=== PATIENT | female | born 1975 | race Caucasian/White ===

== ENCOUNTER 2016-12-08 13:41 | Day surgery (SDC) | payer OTHER ==
[~2016-12-08] VITALS: Ht 172.7 cm; Wt 96.1 kg
[~2016-12-08 13:41] MED LIST: OMEP40CA6 PO; ZOF8 PO
[2016-12-08 14:12] VITALS: Ht 172.7 cm; Wt 96.1 kg
[2016-12-08] MEDS ORDERED: LEVO150T64 PO (14:20)
[2016-12-08] MEDS ORDERED: PROPOFOL 20 ML ONE ×2 (14:42→14:43)
[2016-12-08] MEDS ORDERED: LIDOCAINE 2% (SDV) 5 ML INJ ONE (14:42)
[2016-12-08] MEDS ORDERED: MIDAZOLAM 1 MG/ML 2 ML INJ ONE (14:43)
[2016-12-08 15:01] VITALS: BP 127/76; PULSE 69; RESP 20
[2016-12-08 16:11] VITALS: BP 124/84; PULSE 59; RESP 19
--- NOTE | 2016-12-08 17:44 | GILP ---
DATE OF PROCEDURE: 12/08/2016 NAME OF PROCEDURES: 1. Esophagogastroduodenoscopy and biopsy. 2. Colonoscopy and biopsy. SURGEON: Prosper Tillman MD PREOPERATIVE DIAGNOSES: 1. Abdominal pain. 2. Change in the bowel habit. 3. Rectal bleeding. POSTOPERATIVE DIAGNOSES: 1. Gastritis with erosions. 2. Gastric mucosal biopsies were positive for H. pylori infection. 3. Colonoscopy all the way to the cecum. 4. Small rectal polyp was removed using the biopsy forceps. 5. Internal hemorrhoids. INDICATION FOR THE PROCEDURE: Ms. Myla Patel is a 41-year-old female patient who had upper abdo hussain pain, not responding to therapy. The patient also had change in the bowel habit associated wi th rectal bleeding. The patient was scheduled for endoscopy and colonoscopy for further evaluation. The procedures and possible complications are well explained to the patient. She understood and con sented to the procedures. DESCRIPTION OF PROCEDURE: Under the influence of anesthesia, the gastroscope was carefully introduc ed into the esophagus, and under direct vision, it was advanced to the stomach and through the pylor us, into the duodenal bulb and descending duodenum. Findings: ESOPHAGUS: The mucosa was normal. STOMACH: The patient had gastritis with erosions. Gastric mucosal biopsies were positive for H. py rishi infection. DUODENUM: Normal. The colonoscope was carefully introduced in the rectum, and under direct vision, it was advanced all the way to the cecum. Findings: The patient had a small rectal polyp, and it was removed using the biopsy forceps. She h ad internal hemorrhoids. She tolerated the procedures very well. There was no complication from the procedures. At the end of the procedures, she was awake with stable vital signs, and she was discharged home to the care of her family. IMPRESSION: 1. Gastritis with erosions. 2. Gastric mucosal biopsies were positive for H. pylori infection. 3. Colonoscopy all the way to the cecum. 4. Small rectal polyp was removed using the biopsy forceps. 5. Internal hemorrhoids. PLAN: 1. Zantac 300 mg p.o. b.i.d. 2. Doxycycline 100 mg p.o. b.i.d. 3. Flagyl 500 mg p.o. b.i.d. 4. Pepto-Bismol 2 tablets p.o. four times a day. 5. All these 4 medications for 14 days for H. pylori infection. 6. MiraLax 17 grams dissolved in a glass of water by mouth daily for constipation. Dictated By: PROSPER HOLLY/XIAO Conf#: [id number] DID#: [id number] CC: JAKY CHU MD;*EndCC*
--- NOTE | 2016-12-09 08:11 | CONS ---
DATE OF ADMISSION: 12/08/2016 DATE OF CONSULTATION: TYPE OF CONSULTATION: Preoperative gastroenterology. Dr. Irby: I thank you very much for this kind referral. HISTORY OF PRESENT ILLNESS: Ms. Myla Patel is a 41-year-old female patient who has been referred to me for further evaluation of abdominal pain and change in the bowel habit. The patient states s he has upper abdominal pain associated with bloating. Symptomatic medical therapy is not helping he r. There is no past history of peptic ulcer disease. She is not taking any nonsteroidal anti-infla mmatory agents. Her appetite has been poor and she states that she has been losing weight. She is status post cholecystectomy. She does not have any fever, chills or jaundice. There is no history of liver disease. The patient also complains of change in the bowel habit with constipation. She h as occasional rectal bleeding. There is no past history of colon neoplasm. The patient was recentl y hospitalized because of abdominal pain and vomiting. Possibility of small-bowel obstruction was c onsidered. The patient had abdominal CT scan and small bowel series. No significant abnormality wa s detected. She also underwent capsule endoscopy of the small bowel and it was negative. She is no t a hypertensive or diabetic. She does not have any heart disease or lung problem. There is no his tory of kidney disease. She has got hypothyroidism. She is status post tubal ligation. SOCIAL HISTORY: She is a nonsmoker. She does not abuse alcohol. FAMILY HISTORY: Negative for gastrointestinal tract neoplasm. ALLERGIES: THERE IS NO HISTORY OF SIGNIFICANT DRUG ALLERGY. MEDICATIONS: Levothyroxine. PHYSICAL EXAMINATION: GENERAL: She is 5 feet 8 inches tall and she weighs 208 pounds. HEART: Examination of the heart reveals normal first and second heart sounds. LUNGS: Clear. ABDOMEN: Soft without any distention. Liver and spleen are not palpable. There are no masses. Th ere is no focal tenderness. Normal bowel sounds are heard. CENTRAL NERVOUS SYSTEM: Does not reveal any focal neurological deficit. IMPRESSION: 1. Upper abdominal pain associated with bloating. 2. Change in the bowel habit with constipation. 3. History of rectal bleeding. 4. The patient had abdominal CT scan, small bowel series and capsule endoscopy of the small bowel a nd all of them are negative. 5. Hypothyroidism. 6. Status post cholecystectomy. 7. Status post tubal ligation. PLAN: 1. Pantoprazole 40 mg p.o. q.a.m. 2. Linzess 145 mcg p.o. daily a.m. before breakfast. 3. If Linzess is not covered by insurance, MiraLax 17 grams dissolved in a glass of water p.o. echo y. 4. Endoscopy and colonoscopy for further evaluation. 5. Because of the obesity with a short thick neck, the patient will need monitored anesthesia care for the procedures. The procedures and possible complications are well explained to the patient. She understands and co nsents to the procedures. I thank you once again. With warmest personal regards, Dictated By: HARPREET HOLLY/XIAO Conf#: [id number] DID#: [id number]
== END 2016-12-08 16:44 | disposition home or self-care (01) ==
LOC: GIL 13:41
PROVIDERS: ATTEND Internal Medicine Gastroenterology
DX: R19.4 Change in bowel habit (principal); K62.1 Rectal polyp; K29.60 Other gastritis without bleeding; K64.8 Other hemorrhoids; E03.9 Hypothyroidism, unspecified; E66.9 Obesity, unspecified; Z68.32 Body mass index [BMI] 32.0-32.9, adult
CPT/HCPCS: 43239; 45380; 87081; 88305; J2250